=== PATIENT | male | born 1975 | race Caucasian/White ===

== ENCOUNTER 2024-12-19 09:49 | Day surgery (SDC) | payer BC ==
[~2024-12-19 09:49] MED LIST: Sodium Chloride 0.9% 10 ML Syringe FLUSH PRN
[2024-12-19] MEDS: Lactated Ringers 1,000 ML IV SCH (10:30)
[2024-12-19] MEDS ORDERED: Midazolam 1 MG/ML 2 ML SDV ONE (10:48)
[2024-12-19] MEDS ORDERED: Propofol 200 MG/20 ML SDV ONE (10:48)
== END 2024-12-19 12:33 | disposition home or self-care (01) ==
LOC: KA.SDS 09:49
PROVIDERS: ATTEND Family Medicine
DX: Z12.11 Encounter for screening for malignant neoplasm of colon (principal); D12.5 Benign neoplasm of sigmoid colon; R19.5 Other fecal abnormalities; Z88.0 Allergy status to penicillin; Z88.1 Allergy status to other antibiotic agents; Z88.8 Allergy status to other drugs, medicaments and biological substances
CPT/HCPCS: 00811; 88305; J2250; J2704; J7120